=== PATIENT | female | born 1995 | race African-American/Black ===

== ENCOUNTER 2017-11-20 10:34 | Emergency (ER) | payer SELFPAY ==
[~2017-11-20] VITALS: Ht 175.3 cm; Wt 70.2 kg
[2017-11-20] MEDS ORDERED: BACTROBAN TOP (11:31)
[2017-11-20 11:35] VITALS: BP 131/85
== END 2017-11-20 11:35 | disposition home or self-care (01) | DRG 607 ==
LOC: ED 10:34
DX: S00.86XA Insect bite (nonvenomous) of other part of head, initial encounter (principal); W57.XXXA Bitten or stung by nonvenomous insect and other nonvenomous arthropods, initial encounter; L29.9 Pruritus, unspecified

== ENCOUNTER 2018-06-20 10:32 | Emergency (ER) | payer SELFPAY ==
[~2018-06-20] VITALS: Ht 175.3 cm; Wt 59.1 kg
[~2018-06-20 10:32] MED LIST: BACTROBAN TOP
[2018-06-20 11:21] LABS: URINE BILIRUBIN - DIPSTICK NEGATIVE (NEGATIVE); URINE BLOOD DIPSTICK NEGATIVE (NEGATIVE); URINE COLOR YELLOW; URINE GLUCOSE - DIPSTICK NEGATIVE (NEGATIVE); URINE KETONE NEGATIVE (NEGATIVE); URINE LEUK ESTERASE TRACE (NEGATIVE); URINE NITRITE - DIPSTICK NEGATIVE (Negative); URINE PROTEIN - DIPSTICK NEGATIVE (NEG-TRACE); URINE UROBILINOGEN - DIPSTICK 0.2 E.U./dL (0.2)
[2018-06-20 11:38] VITALS: BP 121/82
== END 2018-06-20 11:43 | disposition home or self-care (01) | DRG 392 ==
LOC: ED 10:32
PROVIDERS: Family Medicine
DX: R10.2 Pelvic and perineal pain (principal)

== ENCOUNTER 2020-09-09 01:21 | Emergency (ER) | payer BC, OTHER ==
[~2020-09-09] VITALS: Ht 175.3 cm; Wt 82.0 kg
[2020-09-09] MEDS ORDERED: PRENATA3 PO (01:46)
[2020-09-09] MEDS ORDERED: AUGMENTIN500TAB PO (01:51)
[2020-09-09 02:10] VITALS: BP 114/71
== END 2020-09-09 04:00 | disposition home or self-care (01) ==
LOC: ED 01:21
DX: O9A.211 Injury, poisoning and certain other consequences of external causes complicating pregnancy, first trimester (principal); S41.052A Open bite of left shoulder, initial encounter; Y04.1XXA Assault by human bite, initial encounter; Z3A.13 13 weeks gestation of pregnancy